=== PATIENT | female | born 1995 | race Caucasian/White ===

== ENCOUNTER 2022-04-06 12:32 | Emergency (ER) | payer OTHER ==
[~2022-04-06] VITALS: Ht 160 cm; Wt 108.6 kg
[2022-04-06 12:38] VITALS: BP 117/58
--- NOTE | 2022-04-06 12:44 | NUR ---
PATIENT AMBULATED TO BED 4.
--- NOTE | 2022-04-06 12:46 | NUR ---
PT AMBULATED TO RESTROOM WITH STEADY GAIT.
--- NOTE | 2022-04-06 12:58 | NUR ---
26 Y/O FEMALE C/O ABDOMINAL PAIN 10/10 GENERALIZED RADIATES TO RUQ. ABD IS SOFT, ROUND, BOWEL SOUNDS ACTIVE X4, LAST BM 04/06/22. NOTED TENDERNESS TO RUQ ON PALPATION. STATES +N/V/D. DENIES FEVER/CHILLS. PMH: GALLSTONES NKA
[2022-04-06] MEDS ORDERED: NACL 0.9% 1,000 ML IV ONE (13:00)
[2022-04-06] MEDS ORDERED: MORPHINE SULFATE 4 MG/ML SYR IVP ONE (13:00)
[2022-04-06] MEDS ORDERED: ONDANSETRON 4 MG/2 ML VIAL IVP ONE (13:00)
[2022-04-06] MEDS ORDERED: KETOROLAC 30 MG/ML VIAL IVP ONE (13:00)
--- NOTE | 2022-04-06 13:06 | NUR ---
MAINTENANCE SERVICE SUPERVISOR AT PT BEDSIDE.
--- NOTE | 2022-04-06 13:10 | NUR ---
US AT PT BEDSIDE.
[2022-04-06 13:19] LABS: BASOPHILS % (AUTO) 0.4 % (0.0-2.0); EOSINOPHILS # (AUTO) 0.1 K/uL (0-0.4); EOSINOPHILS % (AUTO) 0.4 % (0.0-4.0); HEMATOCRIT 38.6 % (36-48); HEMOGLOBIN 12.7 g/dL (12.0-16.0); LYMPHOCYTES # (AUTO) 1.3 K/uL (2.5-16.5); LYMPHOCYTES % (AUTO) 9.9 % (20.5-51.1); MEAN CORPUSCULAR HEMOGLOBIN 28 pg (27-31); MEAN CORPUSCULAR HGB CONC 33 g/dL (33-37); MEAN CORPUSCULAR VOLUME 85.5 fL (80-94); MONOCYTES # (AUTO) 0.4 K/uL (0.8-1.0); NEUTROPHILS # (AUTO) 11.1 K/uL (1.8-7.7); NEUTROPHILS % (AUTO) 86.3 % (42.2-75.2); PLATELET COUNT (AUTO) 245 K/uL (140-450); RED BLOOD CELL COUNT(AUTO) 4.51 MIL/uL (4.20-5.40); RED CELL DISTRIBUTION WIDTH 14.2 % (11.6-13.7); WHITE BLOOD COUNT (AUTO) 12.8 K/uL (4.8-10.8)
--- NOTE | 2022-04-06 13:20 | NUR ---
DOMINIC WALKED AND HANDED TO CHHAYA
--- NOTE | 2022-04-06 13:29 | NUR ---
ULTRASOUND FINISHED, PT RESTING IN BED, PAIN 0/10, DENIED ANY N/V AT THIS MOMENT
[2022-04-06 13:36] LABS: ALBUMIN 3.4 g/dL (3.4-5.0); ANION GAP 11.7 (8-16); CREATININE 0.6 mg/dL (0.6-1.3); POTASSIUM 3.7 mmol/L (3.5-5.1); TOTAL BILIRUBIN 0.2 mg/dL (0.0-1.0)
[2022-04-06] MEDS ORDERED: IBUP-2213 PO (15:16)
[2022-04-06] MEDS ORDERED: ACET-10509 PO (15:16)
[2022-04-06 15:38] VITALS: BP 109/58
--- NOTE | 2022-04-06 15:39 | NUR ---
Patient discharged with v/s stable. Written and verbal after care instructions ABOUT CHOLELITHIASIS given and explained. Patient alert, oriented and verbalized understanding of instructions. Ambulatory with steady gait. All questions addressed prior to discharge. ID band removed. Patient advised to follow up with PMD. Rx of MOTRIN, IBUPROFEN given. Patient educated on indication of medication including possible reaction and side effects. Opportunity to ask questions provided and answered.
[2022-04-06 15:57] LABS: BILIRUBIN,URINE NEGATIVE (NEGATIVE); BLOOD, URINE 2+ (NEGATIVE); COLOR,URINE YELLOW (YELLOW); LEUKOCYTE ESTERASE ,URINE 1+ (NEGATIVE); NITRITE, URINE NEGATIVE (NEGATIVE); PH,URINE 5.5 (5.0-9.0); UGLUCOSE NEGATIVE (NEGATIVE)
[2022-04-06 15:58] LABS: APPEARANCE,URINE HAZY (CLEAR)
[2022-04-06 16:14] LABS: RBC,URINE 0-5 /HPF (0-5)
== END 2022-04-06 15:39 | disposition home or self-care (01) ==
LOC: MED 12:32
DX: K80.20 Calculus of gallbladder without cholecystitis without obstruction (principal); Z20.822 Contact with and (suspected) exposure to COVID-19; R11.2 Nausea with vomiting, unspecified; R19.7 Diarrhea, unspecified; Z79.899 Other long term (current) drug therapy
CPT/HCPCS: 36415; 76705; 80053; 81001; 81025; 83605; 83690; 85025; 87040; 87086; 87426; 96361; 96374; 96375; 99284; J1885; J2270; J2405; J7030; Q0092

== ENCOUNTER 2022-04-22 08:22 | Day surgery (SDC) | payer OTHER ==
[~2022-04-22] VITALS: Ht 157.5 cm; Wt 109.3 kg
[~2022-04-22 08:22] MED LIST: ACET-10509 PO; IBUP-2213 PO
[2022-04-22] MEDS ORDERED: BUPIVACAINE-MPF 0.25% 30 ML VIAL INJ ONE (12:24)
[2022-04-22] MEDS ORDERED: LIDOCAINE/EPI 1% 1:100000 20 ML VIAL INJ ONE (12:24)
[2022-04-22] MEDS ORDERED: SEVOFLURANE 250 ML BTL INH ONE (12:51)
[2022-04-22] MEDS ORDERED: PROPOFOL 200 MG/20 ML VIAL IV ONE ×2 (12:54)
[2022-04-22] MEDS ORDERED: SUCCINYLCHOLINE CHLORIDE 200 MG/10 ML VIAL IVP ONE (12:54)
[2022-04-22] MEDS ORDERED: ROCURONIUM 50 MG/5 ML VIAL IV ONE (12:55)
[2022-04-22] MEDS ORDERED: fentaNYL citrate 0.05 MG/ML VIAL ONE (12:57)
[2022-04-22] MEDS ORDERED: KETOROLAC 30 MG/ML VIAL ONE (13:55)
[2022-04-22] MEDS ORDERED: ONDANSETRON 4 MG/2 ML VIAL ONE (13:57)
[2022-04-22] MEDS ORDERED: NEOSTIGMINE 1:1000 10 MG/10 ML VIAL ONE (14:15)
[2022-04-22] MEDS ORDERED: GLYCOPYRROLATE 0.2 MG/ML VIAL ONE ×3 (14:15)
[2022-04-22] MEDS ORDERED: MORPHINE SULFATE 2 MG/ML SYR IVP PRN (14:20)
[2022-04-22] MEDS ORDERED: HYDROcodone/APAP 5/325 MG 1 TAB TAB PO PRN (14:20)
[2022-04-22] MEDS ORDERED: MORPHINE SULFATE 4 MG/ML SYR IV PRN (14:20)
[2022-04-22] MEDS ORDERED: ACET-8386 PO (14:34)
[2022-04-22] MEDS ORDERED: METOCLOPRAMIDE 10 MG/2 ML INJ VIAL IVP PRN (14:34)
[2022-04-22] MEDS ORDERED: LABETALOL 20 MG/4 ML VIAL IVP PRN (14:34)
[2022-04-22] MEDS ORDERED: hydrALAZINE 20 MG/ML VIAL IVP PRN (14:35)
[2022-04-22] MEDS ORDERED: LACTATED RINGERS 1,000 ML IV SCH (14:35)
[2022-04-22] MEDS ORDERED: HYDROmorphone PFS 2 MG/ML SYR ONE (14:40)
[2022-04-22] MEDS: HYDROmorphone 1 MG/ML AMP IVP PRN ×5 (14:40→22:30)
[2022-04-22] MEDS: ONDANSETRON 4 MG/2 ML VIAL IV PRN (19:00)
--- NOTE | 2022-04-22 19:19 | NUR ---
PATIENT WAS BROUGHT TO [facility] FROM OR VIA GURNEY AAOX4. NO S/S OF RESPIRATORY DISTRESS. BREATHING NORMAL. SYMMETRICAL RISE AND FALL OF CHEST. TRANSFERRED SAFELY TO BED. ALL SAFETY PRECAUTIONS ARE IN PLACE. ORIENTED TO ROOM, CALL LIGHT , STAFF. IV SITE ON THE LEFT HAND INTACT AND PATENT. NO COMPLAINTS OF PAIN AT THIS TIME. CALL LIGHT IN REACH. MRSA SCREENING DONE. WILL CONTINUE TO MONITOR.
--- NOTE | 2022-04-22 21:10 | NUR ---
PATIENT COMPLAINED OF SEVERE ABDOMINAL PAIN, MEDICATED. PT AAOX4. NO SOB NOTED. CALL LIGHT IN REACH.
[2022-04-23] VITALS: BP 124/69
[2022-04-23] MEDS: ONDANSETRON 4 MG/2 ML VIAL IV PRN ×2 (01:16→17:46)
--- NOTE | 2022-04-23 01:16 | NUR ---
PATIENT COMPLAINED OF NAUSEA, MEDICATED.
--- NOTE | 2022-04-23 07:15 | NUR ---
RECEIVED REPORT FROM HEARTH FEEDER NURSE: PATIENT IN BED ASLEEP BUT EASILY AROUSED AND ALERT. BREATHING EFFORTLESSLY ON ROOM AIR. IV ACCESS WITH 20G CATH, SALINE LOCKED, INTACT AT LEFT HAND. PATIENT VERBALIZES COMFORT. WILL CONTINUE PLAN OF CARE AND MAINTAIN SAFETY.
--- NOTE | 2022-04-23 07:17 | NUR ---
PATIENT IS STABLE. ENDORSED TO AM NURSE FOR CONTINUITY OF CARE.
[2022-04-23 08:00] VITALS: BP 122/67
[2022-04-23] MEDS: HYDROmorphone 1 MG/ML AMP IVP PRN (08:47)
--- NOTE | 2022-04-23 08:47 | NUR ---
PT C/O ABDOMINAL PAIN 06/28, PT S/P [employer] DANYEL. PRN PAIN MEDICATION GIVEN FOR PAIN MANAGEMENT
--- NOTE | 2022-04-23 09:29 | NUR ---
PT S/P NIKITA MONTAÑO YESTERDAY 04/22/22 PER PT SHE HASN'T PASSED GAS YET BUT HAS BEEN AMBULATING TO/FROM RESTROOM. DR HILL MADE AWARE WITH ORDER FOR CARDIAC DIET AND DC TODAY
[2022-04-23 09:46] VITALS: BP 122/67
--- NOTE | 2022-04-23 10:43 | NUR ---
ASSISTED PT IN RESTROOM, ABLE TO AMBULATE WITH STEADY GAIT.
--- NOTE | 2022-04-23 12:56 | NUR ---
PT ABLE TO TOLERATE LUNCH, NO C/O NAUSEA AT THIS TIME. ASSISTED TO THE RESTROOM. PER PT HER WILL PICK HER UP
--- NOTE | 2022-04-23 15:48 | NUR ---
PT ASLEEP IN BED. BREATHING SYMMETRICAL. FLACC O. FREQUENT ROUNDS DONE.
[2022-04-23 16:00] VITALS: BP 131/76
--- NOTE | 2022-04-23 18:02 | NUR ---
PT DISCHARGED TO HOME WITH BELONGINGS AND PAPERWORKS, DISCHARGE INSTRUCTIONS PROVIDED AND VERBALIZED UNDERSTANDING. PICKED UP BY VIA PRIVATE VEHICLE. PT IN STABLE CONDITION. IV LINE REMOVED, CATHETER INTACT, NO BLEEDING NOTED
[2022-04-28] MEDS ORDERED: SEVOFLURANE 250 ML BTL INH ONE (12:51)
== END 2022-04-23 18:00 | disposition home or self-care (01) ==
LOC: MDS 08:22 → MMU 08:27 → MTU 17:57 → MDS 04-23 18:00
PROVIDERS: ATTEND Surgery
DX: K80.10 Calculus of gallbladder with chronic cholecystitis without obstruction (principal); K76.0 Fatty (change of) liver, not elsewhere classified; Z79.899 Other long term (current) drug therapy; Z20.822 Contact with and (suspected) exposure to COVID-19
CPT/HCPCS: 36415; 47562; 71045; 81025; 86886; 86900; 86901; 87081; 87426; J0330; J0690; J1170; J1885; J2001; J2270; J2405; J2704; J2710; J3010; J3490; J7030; J7060; J7120; Q0092

== ENCOUNTER 2022-05-03 01:09 | Emergency (ER) | payer OTHER ==
[~2022-05-03] VITALS: Ht 160 cm; Wt 108.9 kg
[~2022-05-03 01:09] MED LIST changes: -ACET-10509 PO; +ACET-8386 PO; -IBUP-2213 PO
[2022-05-03 01:15] VITALS: BP 125/74
--- NOTE | 2022-05-03 01:15 | NUR ---
TO BED AMBULATORY
[2022-05-03] MEDS ORDERED: MORPHINE SULFATE 4 MG/ML SYR IVP ONE (01:50)
[2022-05-03] MEDS ORDERED: NACL 0.9% 1,000 ML IV SCH (01:50)
[2022-05-03] MEDS ORDERED: ONDANSETRON 4 MG/2 ML VIAL IVP ONE (01:50)
--- NOTE | 2022-05-03 02:00 | NUR ---
Wilmer cortes in ED - 05/03/22 at 0429 by ROBERTA IV removed, catheter intact and site benign. Applied folded 4x4 gauze and tape to stop bleeding.
[2022-05-03 02:12] LABS: BASOPHILS % (AUTO) 0.5 % (0.0-2.0); EOSINOPHILS # (AUTO) 0.6 K/uL (0-0.4); EOSINOPHILS % (AUTO) 6.4 % (0.0-4.0); HEMATOCRIT 37.7 % (36-48); HEMOGLOBIN 12.5 g/dL (12.0-16.0); LYMPHOCYTES % (AUTO) 30.9 % (20.5-51.1); MEAN CORPUSCULAR HEMOGLOBIN 28 pg (27-31); MEAN CORPUSCULAR HGB CONC 33 g/dL (33-37); MEAN CORPUSCULAR VOLUME 85.8 fL (80-94); MONOCYTES # (AUTO) 0.7 K/uL (0.8-1.0); MONOCYTES % (AUTO) 6.8 % (1.7-9.3); NEUTROPHILS # (AUTO) 5.4 K/uL (1.8-7.7); NEUTROPHILS % (AUTO) 55.4 % (42.2-75.2); PLATELET COUNT (AUTO) 277 K/uL (140-450); RED BLOOD CELL COUNT(AUTO) 4.39 MIL/uL (4.20-5.40); RED CELL DISTRIBUTION WIDTH 13.9 % (11.6-13.7); WHITE BLOOD COUNT (AUTO) 9.7 K/uL (4.8-10.8)
--- NOTE | 2022-05-03 02:12 | NUR ---
patient to CT via W/C
[2022-05-03 02:15] LABS: APPEARANCE,URINE CLEAR (CLEAR); BILIRUBIN,URINE NEGATIVE (NEGATIVE); BLOOD, URINE 2+ (NEGATIVE); COLOR,URINE YELLOW (YELLOW); LEUKOCYTE ESTERASE ,URINE 1+ (NEGATIVE); NITRITE, URINE NEGATIVE (NEGATIVE); UGLUCOSE NEGATIVE (NEGATIVE)
[2022-05-03 02:29] LABS: ALBUMIN 3.4 g/dL (3.4-5.0); ANION GAP 10.1 (8-16); CARBON DIOXIDE 27.5 mmol/L (21-32); CREATININE 0.6 mg/dL (0.6-1.3); POTASSIUM 3.6 mmol/L (3.5-5.1); TOTAL BILIRUBIN 0.2 mg/dL (0.0-1.0)
--- NOTE | 2022-05-03 02:31 | NUR ---
PT RETURNED FROM CT VIA WHEELCHAIR
[2022-05-03] MEDS ORDERED: CIPR500T4 PO (04:15)
[2022-05-03] MEDS ORDERED: IBUP-2213 PO (04:15)
[2022-05-03] MEDS ORDERED: ONDA8TAB87 PO (04:15)
[2022-05-03] MEDS ORDERED: ACET-8386 PO (04:15)
--- NOTE | 2022-05-03 04:25 | NUR ---
IV removed, catheter intact and site benign. Applied folded 4x4 gauze and tape to stop bleeding.
[2022-05-03 04:27] VITALS: BP 122/70
--- NOTE | 2022-05-03 04:27 | NUR ---
Patient discharged with VS WNL. Written and verbal after care instructions given and explained about urinary tract infection and abdominal pain. Patient alert, oriented and verbalized understanding of instructions. Ambulatory with steady gait. All questions addressed prior to discharge. ID band removed. Patient advised to follow up with PMD. Rx of Hydrocodon-Acetaminophen 5-325, Ciprofloxacin HCL, Ibuprofen, Ondansetron HCL given. Patient educated on indication of medication including possible reaction and side effects. Opportunity to ask questions provided and answered.
== END 2022-05-03 04:27 | disposition home or self-care (01) ==
LOC: MED 01:09
DX: N39.0 Urinary tract infection, site not specified (principal); Z90.49 Acquired absence of other specified parts of digestive tract; Z79.891 Long term (current) use of opiate analgesic
CPT/HCPCS: 36415; 74177; 80053; 81001; 81025; 83690; 85025; 87086; 96361; 96374; 96375; 99285; J2270; J2405; Q9967; J7030

== ENCOUNTER 2023-05-13 16:00 | Emergency (ER) | payer OTHER ==
[~2023-05-13] VITALS: Ht 160 cm; Wt 113.4 kg
[~2023-05-13 16:00] MED LIST changes: -ACET-8386 PO; +ACET-8905 PO; +CIPR500T4 PO; +IBUP-2213 PO; +ONDA8TAB87 PO
[2023-05-13 16:03] VITALS: BP 121/82; PULSE 80; RESP 20; TEMP 98; O2SAT 99
--- NOTE | 2023-05-13 16:09 | NUR ---
PT AMBULATED TO BED 12. ACCOMPANIED BY FRIEND
--- NOTE | 2023-05-13 16:25 | NUR ---
MD NICOLAS AT BEDSIDE FOR EVALUATION
[2023-05-13 16:40] VITALS: O2SAT 99
--- NOTE | 2023-05-13 16:40 | NUR ---
27YO FEMALE PT C/O INCREASED VAGINAL BLEEDING AND CRAMPING PELVIC PAIN XTODAY. REPORTS ABOUT 3 PAD USES PER HOUR. PT SEEN HERE IN ER YESTERDAY AND DX MISSCARRIAGE/UTI. A1. DENIES CHEST PAIN,SOB, DIZZINESS, N/V/D OR TAKING MEDICATION. PT AAOX4, HOB POSITIONED PER COMFORT. CALL LIGHT WITHIN REACH. HX: DENIES NKA
--- NOTE | 2023-05-13 16:45 | NUR ---
lab at bedside
[2023-05-13 16:49] LABS: BASOPHILS # (AUTO) 0.1 K/uL (0.00-0.22); BASOPHILS % (AUTO) 0.5 % (0.0-2.0); EOSINOPHILS # (AUTO) 0.1 K/uL (0-0.4); EOSINOPHILS % (AUTO) 0.7 % (0.0-4.0); HEMATOCRIT 35.5 % (36-48); HEMOGLOBIN 11.8 g/dL (12.0-16.0); LYMPHOCYTES # (AUTO) 1.5 K/uL (2.5-16.5); LYMPHOCYTES % (AUTO) 16.1 % (20.5-51.1); MEAN CORPUSCULAR HEMOGLOBIN 29 pg (27-31); MEAN CORPUSCULAR HGB CONC 33 g/dL (33-37); MONOCYTES # (AUTO) 0.4 K/uL (0.8-1.0); MONOCYTES % (AUTO) 4.3 % (1.7-9.3); NEUTROPHILS # (AUTO) 7.5 K/uL (1.8-7.7); NEUTROPHILS % (AUTO) 78.4 % (42.2-75.2); PLATELET COUNT (AUTO) 232 K/uL (140-450); RED BLOOD CELL COUNT(AUTO) 4.12 MIL/uL (4.20-5.40); RED CELL DISTRIBUTION WIDTH 14.4 % (11.6-13.7); WHITE BLOOD COUNT (AUTO) 9.6 K/uL (4.8-10.8)
[2023-05-13 17:02] LABS: ALBUMIN 3.3 g/dL (3.4-5.0); ANION GAP 16.1 (8-16); CARBON DIOXIDE 21.3 mmol/L (21-32); CREATININE 0.7 mg/dL (0.6-1.3); POTASSIUM 3.4 mmol/L (3.5-5.1); TOTAL BILIRUBIN 0.3 mg/dL (0.0-1.0)
[2023-05-13] MEDS ORDERED: METHYLERGONOVINE 0.2 MG/ML AMP IM ONE (17:45)
[2023-05-13] MEDS ORDERED: ACETAMINOPHEN EXTRA STRENGTH 500 MG TAB PO ONE (17:50)
[2023-05-13] MEDS ORDERED: ACETAMINOPHEN EXTRA STRENGTH 500 MG TAB ONE (17:51)
[2023-05-13 18:55] VITALS: TEMP 98.1
--- NOTE | 2023-05-13 19:04 | NUR ---
pt ambulatory to restroom
--- NOTE | 2023-05-13 19:14 | NUR ---
pt reports decrease in vaginal bleeding. MD MADE AWARE
--- NOTE | 2023-05-13 19:22 | NUR ---
REPORT GIVEN TO JASON COOK. TRANSFER OF CARE AT THIS TIME
[2023-05-13] MEDS ORDERED: MISOPROSTOL 100 MCG TAB PO ONE (19:25)
--- NOTE | 2023-05-13 19:35 | NUR ---
Pt hand over from morning shift. Lying on bed Conscious, AO x4. Pain lessen to 3/10.
--- NOTE | 2023-05-13 20:11 | NUR ---
Patient discharged. Written and verbal after care instructions given and explained. Patient verbalized understanding. Ambulatory. All questions addressed prior to discharge. Advised to follow up with PMD.
[2023-05-13 20:14] VITALS: BP 106/60; PULSE 75; RESP 16; O2SAT 99
[2023-05-14] MEDS ORDERED: CEPH-588 PO (10:50)
== END 2023-05-13 20:11 | disposition home or self-care (01) ==
LOC: MED 16:00
DX: O03.9 Complete or unspecified spontaneous abortion without complication (principal); Z90.49 Acquired absence of other specified parts of digestive tract; Z79.899 Other long term (current) drug therapy; Z79.2 Long term (current) use of antibiotics; Z79.1 Long term (current) use of non-steroidal anti-inflammatories (NSAID); Z3A.01 Less than 8 weeks gestation of pregnancy
CPT/HCPCS: 36415; 80053; 84702; 85025; 96372; 99285; J2210